=== PATIENT | female | born 1975 | race African-American/Black ===

== ENCOUNTER → 2024-07-27 | Day surgery (SDC) | payer BC ==
[~2024-07-27] MED LIST: EPHEDRINE SULFATE INJ 50 MG/ML VIAL ONE; FENTANYL CITRATE/PF 100MCG/2 ML INJ ONE; LIDOCAINE HCL 2% LOCAL INJ 5 ML SDV VIAL INJ ONE; LOSARTAN-HCTZ1 EACH PO; METOCLOPRAMIDE HCL 10 MG/2ML VIAL ONE; METOPROLOL TAR100 MG PO; MIDAZOLAM HCL 2 MG/2 ML VIAL ONE; MONTELUKAST SOD10 MG PO; MULTI-VITAMIN1 EACH PO; PANTOPRAZOLE SO40 MG PO; PROPOFOL IV EMULSION 50 ML IV ONE
[2024-07-27] MEDS: LACTATED RINGER'S 1,000 ML ONE (10:45)
[2024-07-27 11:05] VITALS: BP 109/72; PULSE 80; RESP 17; TEMP 97.7; O2SAT 95
== END | disposition home or self-care (01) ==
LOC: OR 05:00
PROVIDERS: ATTEND Internal Medicine Gastroenterology
DX: K21.9 Gastro-esophageal reflux disease without esophagitis (principal); K62.1 Rectal polyp; K29.50 Unspecified chronic gastritis without bleeding; K31.5 Obstruction of duodenum; K25.9 Gastric ulcer, unspecified as acute or chronic, without hemorrhage or perforation; K20.90 Esophagitis, unspecified without bleeding; K31.89 Other diseases of stomach and duodenum; K57.30 Diverticulosis of large intestine without perforation or abscess without bleeding; K64.8 Other hemorrhoids; I10 Essential (primary) hypertension; E66.01 Morbid (severe) obesity due to excess calories; Z88.1 Allergy status to other antibiotic agents; Z01.810 Encounter for preprocedural cardiovascular examination; Z79.899 Other long term (current) drug therapy
CPT/HCPCS: 43239; 45380; 81025; 93005; J2003; J2250; J2704; J2765; J3010; J7121; 45378